=== PATIENT | female | born 1990 | race American Indian/Alaskan Native ===

== ENCOUNTER 2017-01-31 09:56 | Emergency (ER) | payer SELFPAY ==
[2017-01-31 10:36] VITALS: BP 115/66
--- NOTE | 2017-01-31 10:42 | Emergency Department Report ---
Entered by JORDY BEJARANO, acting as scribe for DONNIE ARCOS NP. Chief Complaint: Urogenital-Female Stated Complaint: VAGINAL PAIN Time Seen by Provider: 01/31/17 10:35 - HPI History of Present Illness: 26 y/o female presents with vaginal pain that started yesterday days ago. Sx include dysuria but pt denies rash or vaginal discharge. - ROS Review of Systems: +vaginal pain +dysuria -rash -vaginal d/c - Exam Vital Signs: Vital Signs 01/31/17 10:34 Temperature 98.5 F Pulse Rate 88 Blood Pressure 115/66 O2 Sat by Pulse 99 Oximetry Physical Exam: * female exam not conducted in [facility] pt looks well, non-toxic steady gait a and o x4 [facility] screening note: Focused history and physical exam performed. Due to findings the following was ordered: labs ED Disposition for [facility] Condition: Stable This documentation as recorded by the scribeDARCI RYAN,accurately reflects the service I personally performed and the decisions made by ,DONNIE ARCOS , CLIENT PROFESSIONAL.
[2017-01-31 11:51] LABS: Bacteria,Urine 1+ /HPF (Negative); Bilirubin,Urine NEG (Negative); Blood,Urine SM (Negative); Ketones,Urine NEG (Negative); Leukocyte Esterase,Urine LG (Negative); Mucus,Urine FEW /HPF; Nitrite,Urine NEG (Negative); Protein,Urine <15 mg/dL mg/dL (Negative); Urobilinogen,Urine < 2.0 mg/dL (<2.0)
--- NOTE | 2017-01-31 13:39 | Emergency Department Report ---
ED Female HPI - General Chief complaint: Urogenital-Female Stated complaint: VAGINAL PAIN Time Seen by Provider: 01/31/17 10:35 Source: patient Mode of arrival: Ambulatory Limitations: No Limitations - History of Present Illness Initial comments: This is a 26-year-old female nontoxic, well nourished in appearance, no acute signs of distress deficit ED complaining of dysuria, polyuria and urinary frequency 2 days. Patient stated that she has vaginal irritation but denies any discharge. Denies fever, chills, nausea, vomiting, back apin, abdominal pain, chest pain or short of breath. Denies any vaginal bleeding or discharge. Denies any allergies or past medical history. Last menstrual cycle 2016. Patient denies any concerns of STD exposure. MD Complaint: dysuria -: Gradual, days(s) (2) Consistency: constant Improves with: none Worsens with: urination Are you Now?: No Last Menstrual Period: 12/31/16 EDC: 10/07/17 Associated Symptoms: dysuria. denies: vaginal discharge, vaginal bleeding, abdominal pain, nausea/vomiting, fever/chills, headaches, loss of appetite, hematuria, rash, seizure, shortness of breath, syncope, weakness - Related Data Sexually active: No Previous Rx's Medication Instructions Recorded Last Taken Type Sulfamethoxazole/Trimethoprim 1 each PO BID #14 tablet 01/31/17 Unknown Rx [Bactrim DS TAB] Allergies Allergy/AdvReac Type Severity Reaction Status Date / Time No Known Allergies Allergy Unverified 08/04/14 21:22 ED Review of Systems ROS: Stated complaint: VAGINAL PAIN Other details as noted in HPI Constitutional: denies: chills, fever Eyes: denies: eye pain, eye discharge, vision change ENT: denies: ear pain, throat pain Respiratory: denies: cough, shortness of breath, wheezing Cardiovascular: denies: chest pain, palpitations Endocrine: no symptoms reported Gastrointestinal: denies: abdominal pain, nausea, diarrhea Genitourinary: urgency, dysuria, frequency. denies: discharge Musculoskeletal: denies: back pain, joint swelling, arthralgia Skin: denies: rash, lesions Neurological: denies: headache, weakness, paresthesias Psychiatric: denies: anxiety, depression Hematological/Lymphatic: denies: easy bleeding, easy bruising ED Past Medical Hx - Past Medical History Previous Medical History?: No - Surgical History Past Surgical History?: No - Social History Smoking Status: Never Smoker Substance Use Type: Alcohol - Medications Home Medications: Home Medications Medication Instructions Recorded Confirmed Last Taken Type Sulfamethoxazole/Trimethoprim 1 each PO BID #14 tablet 01/31/17 Unknown Rx [Bactrim DS TAB] ED Physical Exam - General Limitations: No Limitations General appearance: alert, in no apparent distress - Head Head exam: Present: atraumatic, normocephalic, normal inspection - Eye Eye exam: Present: normal appearance, PERRL, EOMI. Absent: scleral icterus, conjunctival injection, nystagmus, periorbital swelling, periorbital tenderness Pupils: Present: normal accommodation - ENT ENT exam: Present: normal exam, normal orophraynx, mucous membranes moist, TM's normal bilaterally, normal external ear exam - Neck Neck exam: Present: normal inspection, full ROM. Absent: tenderness, meningismus, lymphadenopathy, thyromegaly - Respiratory Respiratory exam: Present: normal lung sounds bilaterally. Absent: respiratory distress, wheezes, rales, rhonchi, stridor, chest wall tenderness, accessory muscle use, decreased breath sounds, prolonged expiratory - Cardiovascular Cardiovascular Exam: Present: regular rate, normal rhythm, normal heart sounds. Absent: bradycardia, tachycardia, irregular rhythm, systolic murmur, diastolic murmur, rubs, gallop - GI/Abdominal GI/Abdominal exam: Present: soft, normal bowel sounds. Absent: distended, tenderness, guarding, rebound, rigid, diminished bowel sounds - Rectal Rectal exam: Present: deferred - External exam: Present: normal external exam, other (procurement buyer Quanneka Bakari present during exam). Absent: erythema, swelling, lesions, lacerations, ecchymosis, bleeding Speculum exam: Present: normal speculum exam. Absent: erythema, vaginal discharge, cervical discharge, vaginal bleeding, foreign body, tissue, laceration Bi-manual exam: Present: normal bi-manual exam, other (procurement buyer Quanneka Bakari present during exam). Absent: cervical motion tendernes, adnexal tenderness, adnexal mass, uterine enlargement, uterine tenderness - Extremities Exam Extremities exam: Present: normal inspection, full ROM, normal capillary refill. Absent: tenderness, pedal edema, joint swelling, calf tenderness - Back Exam Back exam: Present: normal inspection, full ROM. Absent: tenderness, CVA tenderness (R), CVA tenderness (L), muscle spasm, paraspinal tenderness, vertebral tenderness, rash noted - Neurological Exam Neurological exam: Present: alert, oriented X3, CN II-XII intact, normal gait, reflexes normal - Psychiatric Psychiatric exam: Present: normal affect, normal mood - Skin Skin exam: Present: warm, dry, intact, normal color. Absent: rash ED Course Vital Signs 01/31/17 10:34 Temperature 98.5 F Pulse Rate 88 Blood Pressure 115/66 O2 Sat by Pulse 99 Oximetry - Reevaluation(s) Reevaluation #1: 01/31/17 13:42 Patient is speaking in full sentences with no signs of distress. Critical care attestation.: If time is entered above; I have spent that time in minutes in the direct care of this critically ill patient, excluding procedure time. ED Disposition Clinical Impression: UTI (urinary tract infection) Qualifiers: Urinary tract infection type: site unspecified Hematuria presence: without hematuria Qualified Code(s): N39.0 - Urinary tract infection, site not specified Disposition: DC-01 TO HOME OR SELFCARE Is pt being admited?: No Does the pt Need Aspirin: No Condition: Stable Instructions: Urinary Tract Infection in Women (ED), Sulfamethoxazole/ Trimethoprim (By mouth) Additional Instructions: Follow-up with your primary care doctor to 3-5 days or symptoms worsen and continue presented to emergency room as was possible. Take full course of antibiotics and was prescribed Prescriptions: Sulfamethoxazole/Trimethoprim [Bactrim DS TAB] 1 each PO BID #14 tablet Referrals: KELSEY HEADLEY MD [Primary Care Provider] - 3-5 Days LUCA RICE MD [Staff Physician] - 3-5 Days [facility] [Outside] - 3-5 Days [facility] [Outside] - 3-5 Days Forms: Work/School Release Form(ED)
== END 2017-01-31 13:54 | disposition home or self-care (01) ==
LOC: ED 09:56
DX: N39.0 Urinary tract infection, site not specified (principal)
CPT/HCPCS: 81001; 81025; 99283

== ENCOUNTER 2017-03-07 06:37 | Emergency (ER) | payer SELFPAY ==
[2017-03-07 07:35] VITALS: BP 120/69
[2017-03-07 08:43] LABS: Bacteria,Urine 2+ /HPF (Negative); Bilirubin,Urine NEG (Negative); Blood,Urine SM (Negative); Ketones,Urine TR mg/dL (Negative); Leukocyte Esterase,Urine LG (Negative); Mucus,Urine 1+ /HPF; Nitrite,Urine NEG (Negative); Protein,Urine <15 mg/dL mg/dL (Negative); Urobilinogen,Urine < 2.0 mg/dL (<2.0)
--- NOTE | 2017-03-07 10:02 | Emergency Department Report ---
ED Female HPI - General Chief complaint: Urogenital-Female Stated complaint: VAGINAL PAIN Time Seen by Provider: 03/07/17 07:57 Source: patient Mode of arrival: Ambulatory Limitations: No Limitations - History of Present Illness Initial comments: Patient is a 26-year-old female who presents due to vaginal pain 4 days. Patient states that she was treated 3 weeks ago for a bladder infection and she states that she feels the same way she felt 3 weeks ago. Patient states that she has pain in her vaginal area, she has intermittent dysuria. Patient states that she was placed on Bactrim 3 weeks ago. She denies any vaginal discharge or vaginal bleeding. Patient states that low last menstrual cycle was 2 weeks ago. Denies any abdominal pain, nausea, vomiting or diarrhea. MD Complaint: other (vaginal pain) Onset/Timin -: days(s) Location: perineum Radiation: non-radiating Severity: moderate Quality: aching Consistency: intermittent Improves with: none Worsens with: urination Are you Now?: No Last Menstrual Period: 02/21/17 EDC: 11/28/17 Associated Symptoms: denies other symptoms - Related Data Sexually active: No Previous Rx's Medication Instructions Recorded Last Taken Type Sulfamethoxazole/Trimethoprim 1 each PO BID #14 tablet 01/31/17 Unknown Rx [Bactrim DS TAB] Ciprofloxacin HCl [Ciprofloxacin 500 mg PO Q12H #14 tab 03/07/17 Unknown Rx TAB] Fluconazole [Diflucan TAB] 150 mg PO ONCE #2 tablet 03/07/17 Unknown Rx Allergies Allergy/AdvReac Type Severity Reaction Status Date / Time No Known Allergies Allergy Unverified 08/04/14 21:22 ED Review of Systems ROS: Stated complaint: VAGINAL PAIN Other details as noted in HPI Comment: All other systems reviewed and negative Constitutional: no symptoms reported. denies: chills, diaphoresis, fever, malaise, weakness Eyes: denies: eye pain, eye discharge, vision change ENT: denies: ear pain, throat pain, dental pain, hearing loss, epistaxis, congestion Respiratory: no symptoms reported Gastrointestinal: denies: abdominal pain, nausea, vomiting, diarrhea, constipation Genitourinary: dysuria, other (vaginal pain). denies: urgency, frequency, hematuria, discharge, abnormal menses, dyspareunia Musculoskeletal: denies: back pain, joint swelling, arthralgia Skin: denies: rash Neurological: denies: headache ED Past Medical Hx - Past Medical History Previous Medical History?: No - Surgical History Past Surgical History?: No - Social History Smoking Status: Never Smoker Substance Use Type: None - Medications Home Medications: Home Medications Medication Instructions Recorded Confirmed Last Taken Type Sulfamethoxazole/Trimethoprim 1 each PO BID #14 tablet 01/31/17 Unknown Rx [Bactrim DS TAB] Ciprofloxacin HCl [Ciprofloxacin 500 mg PO Q12H #14 tab 03/07/17 Unknown Rx TAB] Fluconazole [Diflucan TAB] 150 mg PO ONCE #2 tablet 03/07/17 Unknown Rx ED Physical Exam - General Limitations: No Limitations General appearance: alert, in no apparent distress - Head Head exam: Present: atraumatic, normocephalic, normal inspection - GI/Abdominal GI/Abdominal exam: Present: soft, tenderness. Absent: distended, guarding, rebound, rigid - External exam: Present: normal external exam. Absent: erythema, swelling, lesions, lacerations, ecchymosis, bleeding Speculum exam: Present: erythema, vaginal discharge. Absent: cervical discharge , vaginal bleeding, foreign body, tissue, laceration Bi-manual exam: Present: normal bi-manual exam. Absent: cervical motion tendernes, adnexal tenderness, adnexal mass, uterine enlargement, uterine tenderness - Extremities Exam Extremities exam: Present: normal inspection, full ROM. Absent: tenderness - Back Exam Back exam: Present: normal inspection, full ROM. Absent: tenderness - Neurological Exam Neurological exam: Present: alert, oriented X3, normal gait - Psychiatric Psychiatric exam: Present: normal affect, normal mood - Skin Skin exam: Present: warm, dry, intact ED Course Vital Signs 03/07/17 07:33 Temperature 97.3 F L Pulse Rate 72 Respiratory 16 Rate Blood Pressure 120/69 O2 Sat by Pulse 100 Oximetry ED Medical Decision Making - Lab Data Lab Results 03/07/17 03/07/17 Range/Units 07:54 08:18 Urine Color Yellow (Yellow) Urine Turbidity Clear (Clear) Urine pH 5.0 (5.0-7.0) Ur Specific [place] 1.020 (1.003-1.030) Urine Protein <15 mg/dl (Negative) mg/dL Urine Glucose (UA) Neg (Negative) mg/dL Urine Ketones Tr (Negative) mg/dL Urine Blood Sm (Negative) Urine Nitrite Neg (Negative) Urine Bilirubin Neg (Negative) Urine Urobilinogen < 2.0 (<2.0) mg/dL Ur Leukocyte Esterase Lg (Negative) Urine WBC (Auto) 62.0 H (0.0-6.0) /HPF Urine RBC (Auto) 14.0 (0.0-6.0) /HPF U Epithel Cells (Auto) 17.0 H (0-13.0) /HPF Urine Bacteria (Auto) 2+ (Negative) /HPF Urine Mucus 1+ /HPF Urine HCG, Qual Negative (Negative) - Medical Decision Making Patient was in no acute distress, during pelvic exam patient had copious thick vaginal discharge. There is erythema in the vaginal canal. Urinalysis revealed increased white blood cells in the urine. Wet prep showed yeast, no Trichomonas, no clue cells. Patient was discharged with prescription for ciprofloxacin and Diflucan. Patient was told to return to the ER for any worsening symptoms. - Differential Diagnosis Vidya vaginitis, UTI, cervicitis Critical care attestation.: If time is entered above; I have spent that time in minutes in the direct care of this critically ill patient, excluding procedure time. ED Disposition Clinical Impression: Vidya vaginitis UTI (urinary tract infection) Qualifiers: Urinary tract infection type: acute cystitis Hematuria presence: without hematuria Qualified Code(s): N30.00 - Acute cystitis without hematuria Disposition: TO HOME OR SELFCARE Is pt being admited?: No Does the pt Need Aspirin: No Condition: Good Instructions: Urinary Tract Infection in Women (ED), Vulvovaginal Candidiasis ( ED) Additional Instructions: take ciprofloxacin 500 mg twice a day for 7 days. Take diflucan once and repeat in 48 hours. Prescriptions: Ciprofloxacin HCl [Ciprofloxacin TAB] 500 mg PO Q12H #14 tab Fluconazole [Diflucan TAB] 150 mg PO ONCE #2 tablet Referrals: ALIA HINOJOSA MD [Staff Physician] - 3-5 Days [facility] [Outside] - 3-5 Days Time of Disposition: 10:02
== END 2017-03-07 10:22 | disposition home or self-care (01) ==
LOC: ED 06:37
DX: B37.3 Candidiasis of vulva and vagina (principal); N39.0 Urinary tract infection, site not specified
CPT/HCPCS: 81001; 81025; 87086; 87210; 87591; 99283